=== PATIENT | male | born 2000 | race Caucasian/White ===

== ENCOUNTER 2020-12-25 07:43 | Day surgery (SDC) | payer BC, SELFPAY ==
[~2020-12-25] VITALS: Ht 170.2 cm; Wt 99.8 kg
[2020-12-25] MEDS ORDERED: SIMETHICONE 40 MG/0.6 ML ML ONE (08:56)
[2020-12-25] MEDS ORDERED: fentaNYL CITRATE/PF 100 MCG/2 ML AMP ONE (08:56)
[2020-12-25] MEDS ORDERED: BENZOCAINE 20% 0.5mL UD SPRAY MM ONE (08:56)
[2020-12-25] MEDS ORDERED: MIDAZOLAM HCL 5 MG/5 ML VIAL ONE (08:57)
[2020-12-25] MEDS ORDERED: MEPERIDINE 100 MG INJ. 100 MG/ML VIAL ONE (08:58)
[2020-12-25 09:35] VITALS: BP_SYST 127
[2020-12-25] MEDS ORDERED: DIPHENHYDRAMINE INJ 50 MG/ML VIAL ONE (14:34)
== END 2020-12-25 10:20 | disposition home or self-care (01) ==
LOC: SDS 07:43 → SMU 08:03 → SDS 10:20
PROVIDERS: ATTEND Internal Medicine
DX: K62.5 Hemorrhage of anus and rectum (principal); K52.9 Noninfective gastroenteritis and colitis, unspecified; K64.8 Other hemorrhoids; Z79.899 Other long term (current) drug therapy
CPT/HCPCS: 36415; 43239; 45380; 87426; 88305; 88312; 88313; 99152; 99153; G0378; J1200; J2175; J2250; 88307; J3010